=== PATIENT | female | born 1950 | race Caucasian/White ===

== ENCOUNTER 2016-12-04 06:30 | Day surgery (SDC) | payer MEDICARE, BC ==
[~2016-12-04 06:30] MED LIST: Buffered Lidocaine 0.9% SYRIN* 5 ML/SYR SYRINGE INTRADERM ONE; Dexamethasone IV* 4 MG/ML 1 ML (4 MG) IV SLOW PU ONE; Famotidine IV* 10 MG/ML 2 ML (20 mg) IV ONE
[2016-12-04] MEDS ORDERED: Dexamethasone IV* 4 MG/ML 1 ML (4 MG) ONE (06:41)
[2016-12-04] MEDS ORDERED: Famotidine IV* 10 MG/ML 2 ML (20 mg) ONE (06:41)
[2016-12-04] MEDS ORDERED: Bupivacaine 0.25% SDV* 30 ML ONE (07:11)
[2016-12-04] MEDS ORDERED: fentaNYL* 50 MCG/ML 2 ML VIAL (100 MCG VIAL) ONE ×2 (07:28→08:02)
[2016-12-04] MEDS ORDERED: Midazolam* 1 MG/ML 2 ML VIAL (2 MG) ONE (07:28)
[2016-12-04] MEDS ORDERED: Lidocaine 2% PF * 5 ML VIAL ONE (07:30)
[2016-12-04] MEDS ORDERED: Propofol* 10 MG/ML 20 ML BTL IV PUSH ONE (07:30)
[2016-12-04] MEDS ORDERED: PROCHLORPERAZINE INJ 5 MG/ML 2 ML VIAL IV PRN (07:36)
[2016-12-04] MEDS ORDERED: oxyCODONE/Acetamin 5/325 MG* TAB PO PRN (07:36)
[2016-12-04] MEDS ORDERED: Ketorolac INJ* 30 MG/ML 1 ML VIAL IV PRN (07:36)
[2016-12-04] MEDS ORDERED: HYDROcodone/ACETAMIN 5-325 MG* 1 TAB PO PRN (07:36)
[2016-12-04] MEDS ORDERED: fentaNYL* 50 MCG/ML 2 ML VIAL (100 MCG VIAL) IV PRN (07:36)
[2016-12-04] MEDS ORDERED: Ondansetron INJ* 2 MG/ML VIAL ONE (08:07)
[2016-12-04 08:37] VITALS: BP 123/64
--- NOTE | 2016-12-04 19:16 | OP ---
DATE OF OPERATION: 12/04/16 - [facility] DATE OF : 48 SURGEON: Enrique Fung MD. INSPECTOR REPAIRER S[place]STONE: RADHA Powell. ANESTHESIOLOGIST: Dr. Jacklyn Thompson. ANESTHESIA: Local MAC. PRE-OP DIAGNOSIS: Right carpal tunnel syndrome. POST-OP DIAGNOSIS: Right carpal tunnel syndrome. OPERATIVE PROCEDURE: Right carpal tunnel release. INDICATIONS: Nasra has had progressive severely symptomatic carpal tunnel syndrome bilaterally, the right a little worse than the left. We talked about risks and benefits. She wanted to proceed with surgery. ESTIMATED BLOOD LOSS: 2 mL. COMPLICATIONS: None. FINDINGS: As expected. DESCRIPTION OF PROCEDURE: Nasra was seen in the preoperative holding area. The correct side and site of the procedure were identified. We came back to the operating room where she got some anesthesia and then we had a time-out. I infiltrated the operative area with 0.25% plain Marcaine. We then prepped and draped the arm in the usual fashion and a time-out was performed. I began by exsanguinating the arm with Esmarch and the tourniquet was inflated to 250 mmHg. I then made a 2 to 3 cm incision longitudinally in the standard location for an open carpal tunnel release. Dissection was carried down through the subcutaneous tissue to the palmar fascia, which was then incised longitudinally. A self-retaining retractor was placed, and then under direct visualization, transverse carpal ligament was released just off the radial aspect of the hook of hamate. The release was completed distally and carried out proximally to the wrist flexion crease where the subcutaneous tissue was released and retracted volarly and ulnarly and then a Cassius retractor was placed under direct visualization. Tenotomy scissors were used to release the remainder of the transverse carpal ligament and the distal antebrachial fascia to a level of several centimeters proximal to the wrist flexion crease. I then checked the decompression proximally and distally. There was no compression on the nerve. The nerve was very flattened and red and had the appearance of being chronically compressed. We irrigated out the wound. Skin was closed with 4-0 nylon suture. The wound was dressed with Xeroform, 4x4s, sterile Webril, and an Deny bandage. Tourniquet was deflated. The hand pinked up immediately. She was taken to recovery room in stable condition. [id number]/[facility] #: [id number] BROOKS
== END 2016-12-04 08:45 | disposition home or self-care (01) ==
LOC: OREAST 06:30
PROVIDERS: ATTEND Orthopaedic Surgery Hand Surgery
DX: G56.03 Carpal tunnel syndrome, bilateral upper limbs (principal); I10 Essential (primary) hypertension; Z87.891 Personal history of nicotine dependence
CPT/HCPCS: J1100; J2250; J2405; J2704; J3010